=== PATIENT | female | born 1985 | race Caucasian/White ===

== ENCOUNTER 2023-03-28 10:05 | Emergency (ER) | payer OTHER, SELFPAY ==
[2023-03-28 10:11] VITALS: BP 112/75; PULSE 77; RESP 18; TEMP 36.3; O2SAT 99; BMI 20.6
--- NOTE | 2023-03-28 10:22 | CRLHL7_ITS ---
For Patients: As a result of the Century Cures Act, medical imaging exams and procedure reports are released immediately into your electronic medical record. You may view this report before your referring provider. If you have questions, please contact your health care provider. HISTORY: Right ankle injury. TECHNIQUE: Three views of the right ankle. COMPARISON: No prior. FINDINGS: There is a small acute minimally displaced fracture of the tip of the fibula. Lateral ankle soft tissue swelling is present. There is no acute distal tibial fracture. No widening of the ankle mortise. IMPRESSION: 1. Acute minimally displaced fracture of the tip of the right fibula with adjacent lateral soft tissue swelling. 2. No acute distal tibial fracture, nor widening of the ankle mortise. Dictated by Michael Diaz MD @ 03/28/2023 10:48:19 AM Dictated by: Michael Diaz MD @ 03/28/2023 10:48:25 (Electronically Signed)
--- NOTE | 2023-03-28 10:52 | ED.LOWEXIN ---
HPI - Extremity Injury (Lower) General Chief Complaint: Extremity Pain/Injury, Lower Stated Complaint: right ankle injury Time Seen by Provider: 03/28/23 10:28 History of Present Illness HPI Narrative: This 37-year-old female comes in with an injury to her right ankle. She was running a short run that was organized in the community. She twisted her ankle and fell and had rather quick swelling over the lateral aspect of her right ankle. She did not have any other injury. She did get up and make a few steps and came in for evaluation. Related Data Previous Rx's Medication Instructions Recorded ketorolac 10 mg tablet 10 mg PO Q8H 5 days #15 tabs 03/28/23 Allergies Allergy/AdvReac Type Severity Reaction Status Date / Time amoxicillin Allergy Verified 03/28/23 10:13 Review of Systems Status of ROS: Reports: 10 or more systems reviewed and unremarkable except as noted in History and below Narrative: Constitutional: No fevers, no weight gain or loss. Eyes: No discharge. No vision changes. HENT: No congestion, no sore throat, no ear pain. Cardiovascular: No chest pain, no palpitations. Respiratory: No shortness of breath, no wheezes, no cough. Gastrointestinal: No abdominal pain, no vomiting, no diarrhea. Genitourinary: No dysuria, no hematuria. Musculoskeletal: Right ankle injury. Skin: No rashes, no pruritis. Neurological: No dizziness, weakness, sensory change, speech change. Endo/Heme/Allergies: No bruising or bleeding. No polydipsia. Pysch: no suicidality, no anxiety, no insomnia. All other systems reviewed and are negative. Exam Narrative: Exam Narrative: Constitutional: Well-developed, well-nourished, no acute distress. HEENT: Normocephalic, atraumatic. Neck: Normal range of motion. Nontender. Supple. Heart: Intact distal pulses. Lungs: No chest discomfort. No wheezes, rhonchi, or rales. Abdomen: Nontender. Back: Normal range of motion. Extremities: Swelling over the lateral malleolus of the right ankle. There is no joint effusion or joint instability. Skin: Intact. No rash. Warm. No erythema or pallor. Neurologic: No altered sensation. No weakness. Alert and oriented. Psychiatric: No suicidality. No anxiety or depression. No insomnia. Nursing notes and vitals signs are reviewed. Const: Vital Signs, click to edit/add: Vital Signs - 24 hr 03/28/23 10:11 Temperature 97.4 F L Pulse Rate [Right Pulse Oximeter] 77 Respiratory Rate 18 Blood Pressure [Ri ght Upper Arm] 112/75 Pulse Oximetry 99 Oxygen Delivery Me thod Room Air Course Vital Signs Vital signs: Initial Vital Signs Temperature 97.4 F L 03/28/23 10:11 Temperature Source Temporal Artery Scan 03/28/23 10:11 Pulse Rate 77 03/28/23 10:11 Respiratory Rate 18 03/28/23 10:11 Blood Pressure 112/75 03/28/23 10:11 Blood Pressure Mean 87 03/28/23 10:11 Blood Pressure Position Sitting 03/28/23 10:11 Pulse Oximetry 99 03/28/23 10:11 Oxygen Delivery Method Room Air 03/28/23 10:11 Vital Signs Temperature 97.4 F L 03/28/23 10:11 Pulse Rate 77 03/28/23 10:11 Respiratory Rate 18 03/28/23 10:11 Blood Pressure 112/75 03/28/23 10:11 Pulse Oximetry 99 03/28/23 10:11 Oxygen Delivery Method Room Air 03/28/23 10:11 Temperature 97.4 F L 03/28/23 10:11 Pulse Rate 77 03/28/23 10:11 Respiratory Rate 18 03/28/23 10:11 Blood Pressure 112/75 03/28/23 10:11 Pulse Oximetry 99 03/28/23 10:11 Oxygen Delivery Method Room Air 03/28/23 10:11 MDM - Extremity Injury (Lower) MDM Narrative Medical decision making narrative: This patient has an injury to her right ankle. X-ray images are obtained and by my review show no sign of fracture or dislocation. The patient received an Terrell wrap and was fitted for crutches. She also received a prescription for Toradol. She is encouraged to engage in early activity as tolerated and increase activity as she is able. Discharge Plan Discharge Clinical Impression: Ankle sprain and strain Patient Disposition: Home, Self-Care Condition: Stable Additional Instructions: Use crutches as needed. Early activity is encouraged and increase activity as tolerated. Take medication as needed and directed. Follow up with MD or return if worsening. Prescriptions: New ketorolac 10 mg tablet 10 mg PO Q8H 5 Days Qty: 15 0RF Follow Up/Referrals: Luci Siegel MD [Primary Care Provider] - Stand Alone Forms: [employer] Info Instructions
== END 2023-03-28 11:32 | disposition home or self-care (01) ==
PROVIDERS: Emergency Provider Emergency Medicine Emergency Medical Services
DX: S93.401A Sprain of unspecified ligament of right ankle, initial encounter (principal); X50.1XXA Overexertion from prolonged static or awkward postures, initial encounter
CPT/HCPCS: 73610; 99283; 99284